=== PATIENT | female | born 1955 | race American Indian/Alaskan Native ===

== ENCOUNTER 2019-01-26 18:53 | Observation (INO) | payer SELFPAY ==
[2019-01-26] MEDS ORDERED: ASPIRIN PO ONE (19:01)
--- NOTE | 2019-01-26 19:02 | Emergency Department Report ---
Chief Complaint: Chest Pain Stated Complaint: CHEST PAIN Time Seen by Provider: 01/26/19 18:59 - HPI History of Present Illness: This is a 64 y.o. F. that presents to the ER with left sided chest pain since last night. - Exam Vital Signs: Vital Signs 01/26/19 18:57 Temperature 98.1 F Pulse Rate 69 Respiratory 16 Rate Blood Pressure 140/80 [Left] O2 Sat by Pulse 99 Oximetry MSE screening note: Focused history and physical exam performed. Due to findings the following was ordered: This initial assessment/diagnostic orders/clinical plan/treatment(s) is/are subject to change based on patient's health status, clinical progression and re- assessment by fellow clinical providers in the ED. Further treatment and workup at subsequent clinical providers discretion. Patient/guardians urged not to elope from the ED as their condition may be serious if not clinically assessed and managed. Initial orders include: Chest pain workup Main ED for further evaluation. ED Disposition for MSE Condition: Stable
[2019-01-26 19:47] LABS: BUN/Creatinine Ratio 19; Blood Urea Nitrogen 15 mg/dL (7-17); Calcium 9.3 mg/dL (8.4-10.2); Hemolysis Index 6
--- NOTE | 2019-01-26 19:47 | XRay Report ---
EXAM: XR CHEST 1V AP HISTORY: Chest Pain TECHNIQUE: AP CXR dated January 26, 2019 at 7:25 PM. COMPARISON: None available. FINDINGS: The heart size and mediastinum are within normal limits. The lung ceballos and costophrenic angles are clear. There is no acute parenchymal infiltrate, pleural effusion, or pneumothorax seen. The visua lized bony structures are within normal limits. IMPRESSION: 1. No evidence for acute cardiopulmonary disease seen. This document is electronically signed by Carlota Camarena MD., January 26 2019 07:44:43 PM ET
[2019-01-26 20:02] LABS: Hematocrit 38.5 % (30.3-42.9); Hemoglobin 12.8 gm/dl (10.1-14.3); Mean Corpuscular HGB Conc 33 % (30-34); Mean Corpuscular Volume 84 fl (79-97); Platelet Count 163 K/mm3 (140-440); Red Blood Count 4.58 M/mm3 (3.65-5.03); Red Cell Distribution Width 14.6 % (13.2-15.2)
--- NOTE | 2019-01-26 20:57 | Emergency Department Report ---
ED Chest Pain HPI - General Chief Complaint: Chest Pain Stated Complaint: CHEST PAIN Time Seen by Provider: 01/26/19 18:59 Source: patient, RN notes reviewed Mode of arrival: Ambulatory Limitations: No Limitations - History of Present Illness Initial Comments: This is a pleasant 64-year-old female. The patient is not known to this provider previously. She has a history of hypertension. She does not have a local primary care doctor. She presents to the emergency room today with a complaint of nontraumatic left sided chest pain, shortness of breath. Pain is intermittent. It started earlier on this afternoon. It does not radiate to the back, arms or neck. There is no shortness of breath. This is present over the past few days. It is exertional. It is associated with the chest discomfort. There are no DVT or pulmonary embolus risk factors. There is positive nausea. There is no vomiting. No recent aspirin use. No headache, neck pain, abdominal pain. No urinary symptoms. No other complaints. No family history of heart disease or DVT or pulmonary embolus that she is aware of. MD Complaint: chest pain -: Gradual Onset: during rest, during exertion Pain Location: left chest Pain Radiation: none Severity: mild, moderate Severity scale (0 -10): 8 Quality: tightness, aching Consistency: intermittent Improves With: other Worsens With: other Aspirin use within the Past 7 Days: (0) No - Related Data On Oral Contraceptives: No Home Medications Medication Instructions Recorded Confirmed Last Taken AtorvaSTATin [Lipitor] 20 mg PO QHS 01/27/19 01/27/19 Unknown Allergies Allergy/AdvReac Type Severity Reaction Status Date / Time No Known Allergies Allergy Verified 01/26/19 19:03 Heart Score - HEART Score History: Moderately suspicious EKG: Non-specific Age: 45-65 Risk factors: 1-2 risk factors Troponin: < normal limit HEART Score: 4 - Critical Actions Critical Actions: 4-6 pts:12-16.6% risk of adverse cardiac event. Should be admitted ED Review of Systems ROS: Stated complaint: CHEST PAIN Other details as noted in HPI Constitutional: malaise. denies: fever Eyes: denies: eye discharge ENT: denies: epistaxis Respiratory: shortness of breath Cardiovascular: chest pain Gastrointestinal: nausea. denies: vomiting Genitourinary: denies: dysuria Musculoskeletal: arthralgia Skin: denies: lesions Neurological: denies: headache Psychiatric: denies: anxiety ED Past Medical Hx - Past Medical History Previous Medical History?: Yes Additional medical history: high cholestrol - Surgical History Past Surgical History?: No - Social History Smoking Status: Never Smoker Substance Use Type: None - Medications Home Medications: Home Medications Medication Instructions Recorded Confirmed Last Taken Type AtorvaSTATin [Lipitor] 20 mg PO QHS 01/27/19 01/27/19 Unknown History ED Physical Exam - General Limitations: No Limitations General appearance: alert, in no apparent distress, obese - Head Head exam: Present: atraumatic, normocephalic - Eye Eye exam: Present: normal appearance, EOMI. Absent: nystagmus - ENT ENT exam: Present: normal exam, normal orophraynx, mucous membranes moist, normal external ear exam - Neck Neck exam: Present: normal inspection, full ROM. Absent: tenderness, meningi smus - Respiratory Respiratory exam: Present: normal lung sounds bilaterally, other (there is no breast tenderness, redness, pus or streaking. Chaperoned by nurse Marianne See). Absent: respiratory distress, wheezes, rales, rhonchi, stridor, chest wall tenderness - Cardiovascular Cardiovascular Exam: Present: regular rate, normal rhythm, normal heart sounds. Absent: bradycardia, tachycardia, irregular rhythm, systolic murmur, diastolic murmur, rubs, gallop - GI/Abdominal GI/Abdominal exam: Present: soft. Absent: distended, tenderness, guarding, rebound, rigid, pulsatile mass - Extremities Exam Extremities exam: Present: normal inspection, full ROM, other (2+ pulses noted in the bilateral upper, lower extremities. Compartments soft. No long bony tenderness. The pelvis is stable.). Absent: pedal edema, joint swelling, calf tenderness - Back Exam Back exam: Present: normal inspection, full ROM. Absent: tenderness, CVA tenderness (R), CVA tenderness (L), paraspinal tenderness, vertebral tenderness - Neurological Exam Neurological exam: Present: alert, oriented X3, other (Extraocular movements intact. Tongue midline. No facial droop. Facial sensation intact to light touch in the V1, V2, V3 distribution bilaterally. 5 and 5 strength in 4 extremities.. Sensation is intact to light touch in 4 extremities.). Absent: motor sensory deficit - Psychiatric Psychiatric exam: Present: normal affect, normal mood - Skin Skin exam: Present: warm, dry, intact, normal color. Absent: rash ED Course Vital Signs 01/26/19 01/26/19 01/27/19 18:57 20:32 00:37 Temperature 98.1 F Pulse Rate 69 61 Respiratory 16 18 16 Rate Blood Pressure 140/80 144/82 [Left] O2 Sat by Pulse 99 97 Oximetry 01/27/19 00:49 Temperature Pulse Rate 56 L Respiratory Rate Blood Pressure [Left] O2 Sat by Pulse Oximetry ASIF score - Asif Score Age > 65: (0) No Aspirin use within the Past 7 Days: (0) No 3 or more CAD Risk Factors: (0) No 2 or more Angina events in past 24 hrs: (1) Yes Known CAD with more than 50% Stenosis: (0) No Elevated Cardiac Markers: (0) No ST Deviation Greater than 0.5mm: (0) No ASIF Score: 1 ED Medical Decision Making - Lab Data Result diagrams: 01/27/19 13:07 01/27/19 13:07 Vital Signs 01/26/19 01/26/19 18:57 20:32 Temperature 98.1 F Pulse Rate 69 Respiratory 16 18 Rate Blood Pressure 140/80 [Left] O2 Sat by Pulse 99 Oximetry Labs 01/26/19 01/26/19 19:12 19:12 WBC 6.3 RBC 4.58 Hgb 12.8 Hct 38.5 MCV 84 MCH 28 MCHC 33 RDW 14.6 Plt Count 163 Lymph % (Auto) Product Communications Manager Seg Neutrophils % Product Communications Manager Sodium 139 Potassium 4.1 Chloride 103.4 Carbon Dioxide 22 Anion Gap 18 BUN 15 Creatinine 0.8 Estimated GFR > 60 BUN/Creatinine Ratio 19 Glucose 104 H Calcium 9.3 Troponin T < 0.010 - EKG Data -: EKG Interpreted by Ct EKG shows normal: sinus rhythm Rate: normal - EKG Data When compared to previous EKG there are: previous EKG unavailable 01/26/19 22:19 X-ray of the chest is negative for acute disease. EKG shows a sinus rhythm, 65 bpm, normal axis, when necessary interval prolonged, abnormal EKG, no prior for comparison, this EKG is not consistent with ST elevation myocardial infarction. - Radiology Data Radiology results: report reviewed, image reviewed Print Report Referring Physician: WENDY BARBOZA Patient Name: EVA PATINO Date of : 1955 Sex: Female Report Date: 2019-01-26 Report Status: Finalized Findings [facility] [address] [place] [address] XRay Report Signed Patient: EVA PATINO MR#: [id number] : 1955 Acct:[id number] Age/Sex: 64 / F ADM Date: 01/26/19 Loc: ED Attending Dr: Ordering Physician: KP DAVIS Date of Service: 01/26/19 Pro cedure(s): XR chest 1V ap Accession Number(s): [id number] cc: KP DAVIS Fluoro Time In Minutes: EXAM: XR CHEST 1V AP HISTORY: Chest Pain TECHNIQUE: AP CXR dated January 26, 2019 at 7:25 PM. COMPARISON: None available. FINDINGS: The heart size and mediastinum are within normal limits. The lung ceballos and costophrenic angles are clear. There is no acute parenchymal infiltrate, pleural effusion, or pneumothorax seen. The visualized bony structures are within normal limits. IMPRESSION: 1. No evidence for acute cardiopulmonary disease seen. This document is electronically signed by Hanny Christie MD., January 26 2019 07:44:43 PM ET Transcribed By: ASM Dictated By: HANNY CHRISTIE Elec tronically Authenticated By: HANNY CHRISTIE Signed Date/Time: 01/26/191946 - Medical Decision Making Differential diagnosis, including but not limited to: GERD, gastritis, hiatal hernia, pneumonia, acute coronary syndrome, pulmonary embolus Assessment and plan: Pleasant 64-year-old female, with new onset chest pain and shortness of breath. Moderate risk for major adverse cardiac event as per the heart score risk stratification tool. The patient has no DVT or pulmonary embolus risk factors, she is low risk by well's criteria, and has a negative d-dimer. Pulmonary embolus unlikely in my opinion. Aortic disease unlikely given equal pulses in upper and lower extremities, and unremarkable x-ray of the chest. We will treat the patient's symptoms. She is basically pain-free at this time. She is amenable to hospitalization for expedited cardiac risk stratification. The Hospital physician, Dr. Sprague has agreed to admit the patient to the medical service for the aforementioned reasons. Critical care attestation.: If time is entered above; I have spent that time in minutes in the direct care of this critically ill patient, excluding procedure time. ED Disposition Clinical Impression: Chest pain, Dyspnea Disposition: OP ADMIT IP TO THIS HOSP Is pt being admited?: Yes Does the pt Need Aspirin: Yes Condition: Stable
[2019-01-26] MEDS ORDERED: NACL 0.9% 500 ML 500 ML IV ONE (21:16)
[2019-01-26] MEDS ORDERED: PEPCID IV ONE (21:16)
[2019-01-26] MEDS ORDERED: TORADOL IV ONE (21:16)
[2019-01-26] MEDS ORDERED: NITROSTAT SL PRN (21:16)
[2019-01-26 21:31] LABS: Basophils % (Manual) 0 % (0.0-1.8); RBC Morphology Normal; Total Cells Counted 100
[2019-01-26] MEDS ORDERED: ZOFRAN IV PRN (21:53)
[2019-01-26] MEDS ORDERED: SODIUM CHLORIDE FLUSH SYRINGE 10 ML IV PRN (21:53)
[2019-01-26] MEDS ORDERED: TYLENOL PO PRN (21:53)
[2019-01-26] MEDS ORDERED: PERCOCET 5/325 PO PRN (21:53)
[2019-01-26] MEDS ORDERED: APRESOLINE IV PRN (21:57)
--- NOTE | 2019-01-26 22:04 | History and Physical Report ---
History of Present Illness Date of examination: 01/26/19 History of present illness: 64-year-old lady with a history of hyperlipidemia comes emergency room with complaints of chest pain that started 1 week ago. Was in the left substernal area which he describes as a sharp pain, intermittent every 5 minutes, intensity 5/10, no radiation, cannot identify assessment given factors. Admits to nausea, shortness of breath, palpitation, no diaphoresis. Review of systems Constitutional: no weight loss, chills, fever Ears, eyes, nose, mouth and throat: no nasal congestion, no nasal discharge, no sinus pressure, no vision change, no red eye. Neck: No neck pain or rigidity. Cardiovascular: no palpitations, chest pain Respiratory: no cough, shortness of breath Gastrointestinal: no hematochezia, abdominal pain Genitourinary : no frequency , no hematuria Musculoskeletal: no joint swelling or muscle ache Integumentary: no rash, no pruritis Neurological: no parathesias, no focal weakness Endocrine: no cold or heat intolerance, no polyuria or polydipsia Hematologic/Lymphatic: no easy bruising, no easy bleeding, no gland swelling Allergic/Immunologic: no urticaria, no angioedema. PAST MEDICAL HISTORY:hyperlipidemia PAST SURGICAL HISTORY: None SOCIAL HISTORY: Denies alcohol, drugs, tobacco FAMILY HISTORY: Hypertension Medications and Allergies Allergies Allergy/AdvReac Type Severity Reaction Status Date / Time No Known Allergies Allergy Verified 01/26/19 19:03 Home Medications Medication Instructions Recorded Confirmed Last Taken Type AtorvaSTATin [Lipitor] 20 mg PO QHS 01/27/19 01/27/19 Unknown History Active Meds: Active Medications Acetaminophen (Tylenol) 650 mg PO Q4H PRN PRN Reason: Pain MILD(1-3)/Fever >100.5/MADDEN Enoxaparin Sodium (Lovenox) 30 mg SUB-Q QDAY WES Hydralazine HCl (Apresoline) 5 mg IV Q6H PRN PRN Reason: Hypertension Nitroglycerin (Nitrostat) 0.4 mg SL .Q5MIN PRN PRN Reason: Chest Pain Ondansetron HCl (Zofran) 4 mg IV Q8H PRN PRN Reason: Nausea And Vomiting Oxycodone/Acetaminophen (Percocet 5/325) 1 tab PO Q4H PRN PRN Reason: Pain, Moderate (4-6) Sodium Chloride (Sodium Chloride Flush Syringe 10 Ml) 10 ml IV BID WES Sodium Chloride (Sodium Chloride Flush Syringe 10 Ml) 10 ml IV PRN PRN PRN Reason: LINE FLUSH Exam - Physical Exam Narrative exam: General Apperance: The patient lying in bed, breathing comfortable HEENT: Normocephalic, atraumatic. Pupils equally round and reactive to light, EOMI, no sclericterus or JVD or thyromegaly or nodule. , no carotid bruit, mucous membranes moist, no exudate or erythema Heart: S1-S2, regular is rhythm Lungs: Clear to auscultation bilaterally, breathing comfortable Abdomen: Positive bowel sounds, soft, nontender, nondistended, no organomegaly Extremities: No edema cyanosis clubbing Skin: no rash, nodule, warm and dry Neuro: cranial nerves 2-12 intact, speech is fluent, motor/sensory intact - Constitutional Vitals: Temp Pulse Resp BP Pulse Ox 98.1 F 69 18 140/80 99 01/26/19 18:57 01/26/19 18:57 01/26/19 20:32 01/26/19 18:57 01/26/19 18:57 Results - Labs CBC & Chem 7: 01/26/19 19:12 01/26/19 19:12 Labs: Abnormal lab results 01/26/19 01/26/19 01/26/19 Range/Units 19:12 19:12 21:21 Seg Neuts % (Manual) 25.0 L (40.0-70.0) % Lymphocytes % (Manual) 68.0 H (13.4-35.0) % Seg Neutrophils # Man 1.6 L (1.8-7.7) K/mm3 Glucose 104 H (65-100) mg/dL Total Creatine Kinase 442 H (30-135) units/L - Imaging and Cardiology EKG: image reviewed Chest x-ray: report reviewed Assessment and Plan Assessment Hypertensive urgency, new onset Chest pain Hyperlipidemia Plan Admit to medicine Check cardiac enzymes, stress test IV hydralazine as needed for blood pressure control Percocet, DVT prophylaxis Addendum UTI, start rocephin
[2019-01-26] MEDS: SODIUM CHLORIDE FLUSH SYRINGE 10 ML IV SCH (22:15)
[2019-01-26] MEDS ORDERED: BABY ASPIRIN PO ONE (22:21)
[2019-01-26 22:22] LABS: Bacteria,Urine 1+ /HPF (Negative); Bilirubin,Urine NEG (Negative); Blood,Urine SM (Negative); Color,Urine Straw (Yellow); Protein,Urine <15 mg/dL mg/dL (Negative); Urobilinogen,Urine < 2.0 mg/dL (<2.0)
[2019-01-27] MEDS: ROCEPHIN/NS 1 GM/50 ML 1 GM/50 ML BAG IV SCH (05:40)
[2019-01-27] MEDS ORDERED: LOVENOX SUB-Q SCH (10:00)
[2019-01-27] MEDS ORDERED: LEXISCAN IV ONE ×2 (10:00→10:45)
[2019-01-27] MEDS: SODIUM CHLORIDE FLUSH SYRINGE 10 ML IV SCH ×2 (11:38→22:56)
--- NOTE | 2019-01-27 12:26 | Consultation ---
History of Present Illness Consult date: 01/27/19 Requesting physician: SANJAY LAVARADO Consult reason: chest pain, other (abnormal stress test) History of present illness: She presented with a 1-week h/o recurrent, sharp precordial chest pain. No other associated symptoms. She came to the ER because chest pain persisted on the day of presentation. After ruling out for AMI, she underwent Lexiscan stresss MPI which revealed a large, partially rversible apical defect and a medium size, partially reversible inferior defect. Past History Past Medical History: hyperlipidemia Past Surgical History: No surgical history Social history: denies: smoking, alcohol abuse Family history: CAD (Brother of AMI) Medications and Allergies Allergies Allergy/AdvReac Type Severity Reaction Status Date / Time No Known Allergies Allergy Verified 01/26/19 19:03 Home Medications Medication Instructions Recorded Confirmed Last Taken Type AtorvaSTATin [Lipitor] 20 mg PO QHS 01/27/19 01/27/19 Unknown History Active Meds: Active Medications Acetaminophen (Tylenol) 650 mg PO Q4H PRN PRN Reason: Pain MILD(1-3)/Fever >100.5/MADDEN Enoxaparin Sodium (Lovenox) 40 mg SUB-Q QDAY [facility] Last Admin: 01/27/19 11:38 Dose: 40 mg Documented by: Hydralazine HCl (Apresoline) 5 mg IV Q6H PRN PRN Reason: Hypertension Ceftriaxone Sodium (Rocephin/Ns 1 Gm/50 Ml) 1 gm in 50 mls @ 100 mls/hr IV Q24H WES; Protocol Last Admin: 01/27/19 05:40 Dose: 100 mls/hr Documented by: Nitroglycerin (Nitrostat) 0.4 mg SL .Q5MIN PRN PRN Reason: Chest Pain Ondansetron HCl (Zofran) 4 mg IV Q8H PRN PRN Reason: Nausea And Vomiting Oxycodone/Acetaminophen (Percocet 5/325) 1 tab PO Q4H PRN PRN Reason: Pain, Moderate (4-6) Sodium Chloride (Sodium Chloride Flush Syringe 10 Ml) 10 ml IV BID WES Last Admin: 01/27/19 11:38 Dose: 10 ml Documented by: Sodium Chloride (Sodium Chloride Flush Syringe 10 Ml) 10 ml IV PRN PRN PRN Reason: LINE FLUSH Review of Systems Constitutional: no fever, no chills Ears, nose, mouth and throat: no ear pain, no ear discharge, no sore throat Cardiovascular: chest pain, no palpitations, no syncope, no lightheadedness, no shortness of breath Respiratory: no cough, no hemoptysis, no shortness of breath Gastrointestinal: no abdominal pain, no nausea, no vomiting, no diarrhea, no constipation Genitourinary Female: no dysuria, no urinary frequency Rectal: no pain, no bleeding Musculoskeletal: no neck stiffness, no neck pain, no myalgias Integumentary: no rash, no pruritis Neurological: no weakness, no parathesias, no headaches Endocrine: no cold intolerance, no heat intolerance Hematologic/Lymphatic: no easy bruising, no easy bleeding Allergic/Immunologic: no urticaria, no wheezing Physical Examination Vital Signs Last Vital Signs Temp 98.3 F 01/27/19 04:22 Pulse 58 L 01/27/19 04:22 Resp 18 01/27/19 04:22 BP 139/83 01/27/19 10:40 Pulse Ox 99 01/27/19 04:22 General appearance: no acute distress HEENT: Positive: EOMI, Normocephaly Neck: Positive: neck supple, trachea midline, Carotid Upstroke (full) Cardiac: Positive: Reg Rate and Rhythm, S1/S2 Lungs: Positive: clear to auscultation Neuro: Positive: Grossly Intact Abdomen: Positive: Soft, Active Bowel Sounds. Negative: Tender Skin: Positive: Clear. Negative: Rash Musculoskeletal: Normal Range of Motion Extremities: Present: normal. Absent: edema Results 01/26/19 19:12 01/26/19 19:12 CBC 01/26/19 Range/Units 19:12 WBC 6.3 (4.5-11.0) K/mm3 RBC 4.58 (3.65-5.03) M/mm3 Hgb 12.8 (10.1-14.3) gm/dl Hct 38.5 (30.3-42.9) % Plt Count 163 (140-440) K/mm3 Comprehensive Metabolic Panel 01/26/19 Range/Units 19:12 Sodium 139 (137-145) mmol/L Potassium 4.1 (3.6-5.0) mmol/L Chloride 103.4 (98-107) mmol/L Carbon Dioxide 22 (22-30) mmol/L BUN 15 (7-17) mg/dL Creatinine 0.8 (0.7-1.2) mg/dL Glucose 104 H (65-100) mg/dL Calcium 9.3 (8.4-10.2) mg/dL - Imaging and Cardiology EKG: image reviewed EKG interpretations - EKG Sinus rhythms and dysrhythmias: sinus rhythm Assessment and Plan Initiate anti-ischemic regimen. Schedule coronary angiography in am. - Patient Problems (1) Chest pain Current Visit: Yes Status: Acute (2) Abnormal nuclear stress test Current Visit: Yes Status: Acute (3) Elevated BP without diagnosis of hypertension Current Visit: Yes Status: Acute
[2019-01-27] MEDS ORDERED: NACL 0.9% 500 ML 500 ML IV SCH (13:00)
--- NOTE | 2019-01-27 13:12 | Progress Note ---
Assessment and Plan Assessment and plan: Patient is a 64 yo woman with a history of dyslipidemia who presented to [facility] ED with left sided chest pains x 1 week. She does have indigestion. Cardiac enzyme/troponon T have been negative x 2. She was found to have UTI. She was sent for exercise stress test but she was dizziness so Lexiscan was ordered and it was positive for large, partially reversible apical defect and a medium size, partially reversible inferior defect. Patient had a mammogram recently but says the pain started prior to the mammogram. Chest pains with positive stress test: Cardiology consulted, input noted, [facility] tomorrow GERD: treat with PPI Dyslipidemia: increase Lipitor Hypertension urgency: treat with lopressor, get ECHO UTI: on iv rocephin, urine culture ordered but not done, spoke with nurse Prema History Interval history: Patient was seen and examined. Follow-up on current diagnosis CP. No overnight events reported to me. Patient denies any shortness breath, nausea/vomiting or severe headaches. Imaging, nursing note, chart, labs and old chart reviewed. Discussed with patient. Hospitalist Physical - Physical exam Narrative exam: Gen: WDWN, NAD, Awake, Alert, Orientated HEENT: NCAT, EOMI, PERRL, OP Clear Neck: supple, no adenopathy, no thyromegaly, no JVD CVS/Heart: RRR, normal S1S2, pulses present bilaterally Chest/Lungs: CTA B, Symmetrical chest expansion, good air entry bilaterally GI/Abdomen: soft, NTND, good bowel sounds, no guarding or rebound /Bladder: no suprapubic tenderness, no CVA or paraspinal tenderness Extermity/Skin: no c/c/e, no obvious rash MSK: FROM x 4 Neuro: CN 2-12 grossly intact, no new focal deficits Psych: calm - Constitutional Vitals: Temp Pulse Resp BP Pulse Ox 98.0 F 70 18 120/61 100 01/27/19 12:47 01/27/19 12:47 01/27/19 12:47 01/27/19 12:47 01/27/19 12:47 General appearance: Present: no acute distress Results - Labs CBC & Chem 7: 01/26/19 19:12 01/26/19 19:12 Labs: Laboratory Last Values WBC 6.3 K/mm3 (4.5-11.0) 01/26/19 19:12 RBC 4.58 M/mm3 (3.65-5.03) 01/26/19 19:12 Hgb 12.8 gm/dl (10.1-14.3) 01/26/19 19:12 Hct 38.5 % (30.3-42.9) 01/26/19 19:12 MCV 84 fl (79-97) 01/26/19 19:12 MCH 28 pg (28-32) 01/26/19 19:12 MCHC 33 % (30-34) 01/26/19 19:12 RDW 14.6 % (13.2-15.2) 01/26/19 19:12 Plt Count 163 K/mm3 (140-440) 01/26/19 19:12 Lymph % (Auto) Price Accuracy Supervisor 01/26/19 19:12 Add Manual Diff Complete 01/26/19 19:12 Total Counted 100 01/26/19 19:12 Seg Neutrophils % Price Accuracy Supervisor 01/26/19 19:12 Seg Neuts % (Manual) 25.0 % (40.0-70.0) L 01/26/19 19:12 0 % 01/26/19 19:12 68.0 % (13.4-35.0) H 01/26/19 19:12 Reactive Lymphs % (Man) 0 % 01/26/19 19:12 3.0 % (0.0-7.3) 01/26/19 19:12 4.0 % (0.0-4.3) 01/26/19 19:12 0 % (0.0-1.8) 01/26/19 19:12 0 % 01/26/19 19:12 0 % 01/26/19 19:12 0 % 01/26/19 19:12 0 % 01/26/19 19:12 Nucleated RBC % Not Reportable 01/26/19 19:12 Seg Neutrophils # Man 1.6 K/mm3 (1.8-7.7) L 01/26/19 19:12 Band Neutrophils # 0.0 K/mm3 01/26/19 19:12 4.3 K/mm3 (1.2-5.4) 01/26/19 19:12 Abs React Lymphs (Man) 0.0 K/mm3 01/26/19 19:12 0.2 K/mm3 (0.0-0.8) 01/26/19 19:12 0.3 K/mm3 (0.0-0.4) 01/26/19 19:12 0.0 K/mm3 (0.0-0.1) 01/26/19 19:12 0.0 K/mm3 01/26/19 19:12 0.0 K/mm3 01/26/19 19:12 0.0 K/mm3 01/26/19 19:12 Blast Cells # 0.0 K/mm3 01/26/19 19:12 WBC Morphology Not Reportable 01/26/19 19:12 Hypersegmented Neuts Not Reportable 01/26/19 19:12 Hyposegmented Neuts Not Reportable 01/26/19 19:12 Hypogranular Neuts Not Reportable 01/26/19 19:12 Not Reportable 01/26/19 19:12 Not Reportable 01/26/19 19:12 Not Reportable 01/26/19 19:12 Not Reportable 01/26/19 19:12 Not Reportable 01/26/19 19:12 Not Reportable 01/26/19 19:12 Not Reportable 01/26/19 19:12 Not Reportable 01/26/19 19:12 Plt Clumps, EDTA Not Reportable 01/26/19 19:12 Not Reportable 01/26/19 19:12 Not Reportable 01/26/19 19:12 Not Reportable 01/26/19 19:12 Plt Morphology Comment Not Reportable 01/26/19 19:12 RBC Morphology Normal 01/26/19 19:12 Dimorphic RBCs Not Reportable 01/26/19 19:12 Not Reportable 01/26/19 19:12 Not Reportable 01/26/19 19:12 Not Reportable 01/26/19 19:12 Not Reportable 01/26/19 19:12 Not Reportable 01/26/19 19:12 Not Reportable 01/26/19 19:12 Not Reportable 01/26/19 19:12 Not Reportable 01/26/19 19:12 Not Reportable 01/26/19 19:12 Not Reportable 01/26/19 19:12 Not Reportable 01/26/19 19:12 Not Reportable 01/26/19 19:12 Not Reportable 01/26/19 19:12 Not Reportable 01/26/19 19:12 Not Reportable 01/26/19 19:12 Not Reportable 01/26/19 19:12 Not Reportable 01/26/19 19:12 Not Reportable 01/26/19 19:12 Not Reportable 01/26/19 19:12 Acanthocytes (Spur) Not Reportable 01/26/19 19:12 Rouleaux Not Reportable 01/26/19 19:12 Not Reportable 01/26/19 19:12 Not Reportable 01/26/19 19:12 Not Reportable 01/26/19 19:12 Not Reportable 01/26/19 19:12 Hem Pathologist Commnt No 01/26/19 19:12 185.90 ng/mlDDU (0-234) 01/26/19 21:21 Sodium 139 mmol/L (137-145) 01/26/19 19:12 Potassium 4.1 mmol/L (3.6-5.0) 01/26/19 19:12 Chloride 103.4 mmol/L (98-107) 01/26/19 19:12 Carbon Dioxide 22 mmol/L (22-30) 01/26/19 19:12 18 mmol/L 01/26/19 19:12 BUN 15 mg/dL (7-17) 01/26/19 19:12 0.8 mg/dL (0.7-1.2) 01/26/19 19:12 Estimated GFR > 60 ml/min 01/26/19 19:12 19 % 01/26/19 19:12 Glucose 104 mg/dL (65-100) H 01/26/19 19:12 Calcium 9.3 mg/dL (8.4-10.2) 01/26/19 19:12 Magnesium 2.00 mg/dL (1.7-2.3) 01/26/19 21:21 442 units/L (30-135) H 01/26/19 21:21 < 0.010 ng/mL (0.00-0.029) 01/26/19 21:21 Straw (Yellow) 01/26/19 21:55 Slightly-cloudy (Clear) 01/26/19 21:55 5.0 (5.0-7.0) 01/26/19 21:55 Ur Specific [place] 1.008 (1.003-1.030) 01/26/19 21:55 <15 mg/dl mg/dL (Negative) 01/26/19 21:55 Neg mg/dL (Negative) 01/26/19 21:55 Neg mg/dL (Negative) 01/26/19 21:55 Sm (Negative) 01/26/19 21:55 Neg (Negative) 01/26/19 21:55 Neg (Negative) 01/26/19 21:55 < 2.0 mg/dL (<2.0) 01/26/19 21:55 Ur Leukocyte Esterase Lg (Negative) 01/26/19 21:55 28.0 /HPF (0.0-6.0) H 01/26/19 21:55 1.0 /HPF (0.0-6.0) 01/26/19 21:55 U Epithel Cells (Auto) < 1.0 /HPF (0-13.0) 01/26/19 21:55 1+ /HPF (Negative) 01/26/19 21:55 Active Medications - Current Medications Current Medications: Generic Name Dose Route Start Last Admin Trade Name Freq PRN Reason Stop Dose Admin Acetaminophen 650 mg 01/26/19 21:53 Tylenol PO Q4H PRN Pain MILD(1-3)/Fever >100.5/MADDEN Aspirin 325 mg 01/28/19 10:00 Aspirin PO QDAY WES Enoxaparin Sodium 40 mg 01/27/19 10:00 01/27/19 11:38 Lovenox SUB-Q 40 mg QDAY WES Administration Hydralazine HCl 5 mg 01/26/19 21:57 Apresoline IV Q6H PRN Hypertension Ceftriaxone Sodium 1 gm in 50 mls @ 100 mls/hr 01/27/19 06:00 01/27/19 05:40 Rocephin/Ns 1 Gm/50 Ml IV 100 mls/hr Q24H WES Administration Protocol Sodium Chloride 500 mls @ 50 mls/hr 01/27/19 13:00 Nacl 0.9% 500 Ml IV 01/27/19 22:59 DIRECT WES Nitroglycerin 0.4 mg 01/26/19 21:16 Nitrostat SL .Q5MIN PRN Chest Pain Ondansetron HCl 4 mg 01/26/19 21:53 Zofran IV Q8H PRN Nausea And Vomiting Oxycodone/Acetaminophen 1 tab 01/26/19 21:53 Percocet 5/325 PO Q4H PRN Pain, Moderate (4-6) Sodium Chloride 10 ml 01/26/19 22:00 01/27/19 11:38 Sodium Chloride Flush Syringe 10 Ml IV 10 ml BID WES Administration Sodium Chloride 10 ml 01/26/19 21:53 Sodium Chloride Flush Syringe 10 Ml IV PRN PRN LINE FLUSH
--- NOTE | 2019-01-27 13:41 | Treadmill Report ---
LEXISCAN STRESS TEST REPORT REASON FOR STUDY: Chest pain. STRESS TEST PROTOCOL: The patient received 0.4 mg of Lexiscan intravenously over 10 seconds. Tc-99m Tetrofosmin was subsequently injected. Baseline ECG, sinus bradycardia. Lexiscan ECG, no ischemic changes. No chest pain. No arrhythmias. IMPRESSION: Electrocardiographically negative stress test. Nuclear imaging report to follow. JOB# [id number] [place]/NTS
[2019-01-27] MEDS: LOPRESSOR PO SCH ×2 (14:00→22:55)
[2019-01-27] MEDS ORDERED: PROTONIX PO SCH (14:00)
[2019-01-27 14:03] LABS: Basophils % (Auto) 0.5 % (0.0-1.8); Eosinophils % (Auto) 0.5 % (0.0-4.3); Hematocrit 40.6 % (30.3-42.9); Hemoglobin 13.1 gm/dl (10.1-14.3); Lymphocytes # (Auto) 2.4 K/mm3 (1.2-5.4); Lymphocytes % (Auto) 41.3 % (13.4-35.0); Mean Corpuscular HGB Conc 32 % (30-34); Mean Corpuscular Volume 85 fl (79-97); Monocytes # (Auto) 0.5 K/mm3 (0.0-0.8); Monocytes % (Auto) 7.7 % (0.0-7.3); Platelet Count 171 K/mm3 (140-440); Red Blood Count 4.78 M/mm3 (3.65-5.03); Red Cell Distribution Width 14.3 % (13.2-15.2)
[2019-01-27 14:32] LABS: Creatine Kinase MB 5.1 ng/mL (0.0-4.0)
[2019-01-27 14:33] LABS: BUN/Creatinine Ratio 16; Blood Urea Nitrogen 13 mg/dL (7-17); Calcium 9.3 mg/dL (8.4-10.2); Hemolysis Index 4
--- NOTE | 2019-01-27 15:09 | Treadmill Report ---
THALLIUM REPORT REASON FOR STUDY: Chest pain. IMAGING PROTOCOL: The patient received 10 mCi of technetium-99 Tetrofosmin for rest imaging, and 28 mCi of technetium-99 Tetrofosmin for stress imaging. Imaging for all procedures etc. IMAGING PROTOCOL: The patient received 4 mCi of Thallium 201 for rest imaging and 26 mCi of technetium-99 Tetrofosmin for stress imaging. Imaging for all procedures was completed 30-90 minutes following the initial injection of Technetium 99m Tetrofosmin. SPECT imaging in the 180 degree arc was performed in the right anterior oblique projection. Computerized reconstruction of the images was performed for analysis. NUCLEAR IMAGING RESULTS: Normal left ventricular cavity size with no change from stress to rest. Distribution of radionuclide within the left ventricle revealed a large area of photo-induction involving the apex. The degree of photo-induction is moderate. Rest imaging showed partial improvement in this defect. In addition, there is a medium size area of photo-induction involving the inferior wall. The degree of photo-induction is moderate. Rest imaging showed partial improvement in this defect. Gated SPECT imaging revealed normal global LV systolic function with no significant wall motion abnormalities. The calculated left ventricular ejection fraction is 70%. IMPRESSION: Large, partially reversible apical defect. Medium size, partially reversible inferior defect. Normal global LV systolic function with no significant wall motion abnormalities. Ejection fraction 70%. These findings suggest a small area of prior infarction with mild to moderate residual ischemia in the left anterior descending coronary artery territory. In addition, there is suggestion of a small area of prior infarction with moderate residual ischemia in the right coronary artery territory. [facility]# [id number] [facility]/NTS
[2019-01-28] MEDS: ROCEPHIN/NS 1 GM/50 ML 1 GM/50 ML BAG IV SCH (05:34)
[2019-01-28 06:08] LABS: Hematocrit 40.6 % (30.3-42.9); Mean Corpuscular HGB Conc 32 % (30-34); Mean Corpuscular Volume 85 fl (79-97); Platelet Count 177 K/mm3 (140-440); Red Blood Count 4.78 M/mm3 (3.65-5.03); Red Cell Distribution Width 14.3 % (13.2-15.2)
[2019-01-28 06:14] LABS: INR 0.95 (0.87-1.13)
[2019-01-28 06:19] LABS: BUN/Creatinine Ratio 19; Blood Urea Nitrogen 15 mg/dL (7-17); Calcium 8.9 mg/dL (8.4-10.2); Hemolysis Index 7; LDL Cholesterol,Direct 143 mg/dL (50-130)
[2019-01-28] MEDS ORDERED: ASPIRIN ONE (07:24)
[2019-01-28] MEDS ORDERED: VERSED ONE (08:15)
[2019-01-28] MEDS ORDERED: SUBLIMAZE ONE (08:15)
[2019-01-28] MEDS ORDERED: HEPARIN/NS 5000 UNIT/500ML(CATH LAB) 1,000 ML IR ONE (08:15)
[2019-01-28] MEDS ORDERED: CALAN ONE (08:15)
[2019-01-28] MEDS ORDERED: HEPARIN 10,000 UNITS/10 ML ONE (08:15)
[2019-01-28] MEDS ORDERED: NITROGLYCERIN SYRINGE 3 ML ONE (08:16)
[2019-01-28] MEDS ORDERED: XYLOCAINE 2% INFILTRATI ONE (08:16)
[2019-01-28 08:19] LABS: Chol/HDL Ratio 4.78 %; HDL Cholesterol 41 mg/dL (40-59)
[2019-01-28 08:20] LABS: Basophils % (Manual) 0 % (0.0-1.8); Eosinophils % (Manual) 0 % (0.0-4.3); Platelet Estimate Consistent w Auto; RBC Morphology Normal; Total Cells Counted 100
--- NOTE | 2019-01-28 09:08 | Progress Note ---
Assessment and Plan [facility] via RRA this am: 1. No sig CAD 2. Nl lv fxn 3. No as standard radial care. Consider adding DOC Stable cv status f/u w/ us in office - Patient Problems (1) Abnormal nuclear stress test Current Visit: Yes Status: Acute (2) Chest pain Current Visit: Yes Status: Acute (3) Dyspnea Current Visit: Yes Status: Acute (4) Elevated BP without diagnosis of hypertension Current Visit: Yes Status: Acute Subjective Date of service: 01/28/19 Interval history: no complaints Objective Vital Signs Temp Pulse Pulse Resp BP BP Pulse Ox 01/28/19 07:25 98.6 F 59 L 16 153/77 98 01/28/19 03:57 97.5 F L 62 18 119/64 96 01/28/19 01:17 54 L 01/28/19 00:08 97.9 F 57 L 18 123/51 97 01/27/19 22:55 61 144/71 01/27/19 20:12 97 01/27/19 20:10 61 01/27/19 20:07 98.4 F 60 18 144/71 99 01/27/19 16:59 98.0 F 63 18 124/64 95 01/27/19 14:00 70 120/61 01/27/19 13:00 66 60 01/27/19 12:47 98.0 F 70 18 120/61 100 01/27/19 10:40 139/83 01/27/19 10:38 137/80 01/27/19 10:36 141/77 01/27/19 10:34 133/75 01/27/19 10:32 149/81 01/27/19 10:21 131/74 01/27/19 09:47 154/78 - Physical Examination HEENT: Positive: EOMI, Normocephaly Neck: Positive: neck supple, trachea midline, Carotid Upstroke (full) Neuro: Positive: Grossly Intact Abdomen: Positive: Soft, Active Bowel Sounds. Negative: Tender Skin: Positive: Clear. Negative: Rash Musculoskeletal: Normal Range of Motion Extremities: Present: normal. Absent: edema - Labs and Meds Cardiac Enzymes 01/27/19 Range/Units 13:07 CK-MB (CK-2) 5.1 H (0.0-4.0) ng/mL Coagulation 06/06/19 Range/Units 05:14 PT 13.3 (12.2-14.9) Sec. INR 0.95 (0.87-1.13) Lipids 01/28/19 Range/Units 05:14 Triglycerides 113 (2-149) mg/dL Cholesterol 196 (50-199) mg/dL HDL Cholesterol 41 (40-59) mg/dL Cholesterol/HDL Ratio 4.78 % CBC 01/27/19 01/28/19 Range/Units 13:07 05:14 WBC 5.9 6.1 (4.5-11.0) K/mm3 RBC 4.78 4.78 (3.65-5.03) M/mm3 Hgb 13.1 13.0 (10.1-14.3) gm/dl Hct 40.6 40.6 (30.3-42.9) % Plt Count 171 177 (140-440) K/mm3 Lymph # 2.4 (1.2-5.4) K/mm3 [place] # 0.5 (0.0-0.8) K/mm3 Eos # 0.0 (0.0-0.4) K/mm3 Baso # 0.0 (0.0-0.1) K/mm3 Comprehensive Metabolic Panel 01/27/19 01/28/19 Range/Units 13:07 05:14 Sodium 139 141 (137-145) mmol/L Potassium 3.8 4.1 (3.6-5.0) mmol/L Chloride 101.4 105.1 (98-107) mmol/L Carbon Dioxide 27 24 (22-30) mmol/L BUN 13 15 (7-17) mg/dL Creatinine 0.8 0.8 (0.7-1.2) mg/dL Glucose 124 H 114 H (65-100) mg/dL Calcium 9.3 8.9 (8.4-10.2) mg/dL - Imaging and Cardiology EKG: image reviewed - EKG Sinus rhythms and dysrhythmias: sinus rhythm
--- NOTE | 2019-01-28 09:38 | Cardiac Catherization Report ---
PROCEDURE PERFORMED: Cardiac catheterization. INDICATION FOR PROCEDURE: The patient is a pleasant 64-year-old female who presents with chest pain and found to have an abnormal stress test, multiple risk factors, referred for heart catheterization. Risks, benefits, and potential alternatives were explained at length prior to obtaining informed consent. PROCEDURE IN DETAIL: The patient was brought to catheterization lab in a postabsorptive state, prepped and draped in sterile fashion. Jaydon test in right hand was normal. A 2 mL of 2% lidocaine used to anesthetize the right wrist. A standard 6-Serbian hydrophilic sheath used to cannulate the right radial artery via modified Seldinger technique. All exchanges performed to exchange a J-tip guidewire. JL3.5 catheter used to engage the left main. No dampening or ventricularization. Cineangiography performed in multiple projections. JR4 catheter was used to cross the aortic valve under fluoroscopic guidance. Left ventriculography performed in 30 DAS and 30 [place]OROCCAN projections via hand injections, catheter flushed. Manual pullback performed with continuous pressure monitoring. Catheter used to engage the right coronary. No dampening or ventricularization. Cineangiography performed in all projections. Next, given catheter removed from the body over wire, given recurrent chest pain and hypertension, root aortography was performed in the M[place] projection with a 6-Serbian pigtail catheter and power injector. Next, catheter removed from the body of wire, sheath removed. Manual pressure used to achieve hemostasis. I directly supervised the administration of moderate sedation with fentanyl and Versed from 8:40 a.m. to 9:10 a.m. There were no immediate complications. HEMODYNAMIC DATA: The patient remained in normal sinus rhythm throughout the procedure, heart rate from 55-70, no dysrhythmias. Aortic pressure is 170/80, LV pressure is 170. LVP of 15 mmHg. Left ventriculography reveals normal systolic performance with estimated ejection fraction of 55% to 60%. No evidence of aortic stenosis. CORONARY ANATOMY: This is a right dominant system. Right coronary is a large vessel, courses AV groove, distally bifurcates into posterior descending and posterolateral branches. No discrete stenosis noted. Left main is a moderate-sized vessel, no significant disease, bifurcates to left anterior descending and left circumflex. Left circumflex is a moderate-sized vessel, courses AV groove. No significant disease. LAD is a moderate-sized vessel, courses anterior intergroove, wraps around the apex. No significant disease in the LAD or diagonal system. Left ventriculography reveals normal systolic performance with estimated ejection fraction of 55% to 60%. No evidence of aortic stenosis. Root aortography reveals normal contour. No evidence of dissection, penetrating aortic ulcer, or aortic insufficiency, normal grade vessel anatomy, normal caliber. CONCLUSIONS: 1. No angiographic evidence of significant epicardial coronary disease in this right dominant system. 2. Normal left ventricular systolic performance with estimated ejection fraction of 55% to 60%. 3. No evidence of aortic stenosis. 4. Normal LVEDP. 5. Root aortography without evidence of dissection, penetrating aortic ulcer, or aortic insufficiency. The patient is clinically stable. Standard radial care. Chest pain free. Transferred back to the room. Follow up with Dr. Fowler. Stable cardiac status. JOB# [id number] [facility]/NTS
[2019-01-28] MEDS ORDERED: ASPIRIN PO SCH (10:00)
[2019-01-28 12:36] VITALS: BP 136/67
--- NOTE | 2019-01-28 14:11 | Discharge Summary ---
Providers - Providers Date of Admission: 01/26/19 21:53 Date of discharge: 01/28/19 Attending physician: BEN ALARCON 01/27/19 12:05 Consult to Physician [CONS] Routine Comment: Consulting Provider: OUSMANE RUTLEDGE Physician Instructions: Reason For Exam: chest pain 01/28/19 09:13 Consult to Cardiac Rehabilitation [CONS] Routine Reason For Exam: Cardiac Rehab Evaluation [facility] Hospital[facility] Condition: Stable Hospital course: Patient is a 64 yo woman with a history of dyslipidemia who presented to [facility] ED with left sided chest pains x 1 week. She does have indigestion. Cardiac enzyme/troponon T have been negative x 2. She was found to have UTI. She was sent for exercise stress test but she was dizziness so Lexiscan was ordered and it was positive for large, partially reversible apical defect and a medium size, partially reversible inferior defect. Patient had a mammogram recently but says the pain started prior to the mammogram. [facility] via RRA this am: 1. No sig CAD 2. Nl lv fxn 3. No as Chest pains with positive stress test, suspected CP due to GERD, poa Abnormal nuclear stress test, negative Cardiac catherization on 12/28/18 GERD: treat with PPI Dyslipidemia: increase Lipitor Hypertension urgency, new diagnosis most likely: treat with lopressor, get ECHO UTI, uncomplicated with neg urine ctx Disposition: DC-01 TO HOME OR SELFCARE Time spent for discharge: 35 minutes Core Measure Documentation - Palliative Care Palliative Care/ Comfort Measures: Not Applicable - Core Measures Any of the following diagnoses?: none - VTE Discharge Requirements Deep Vein Thrombosis/Pulmonary Embolism Present on Admission: No Has pt received <5 days of overlap therapy or INR<2.0: No Anticoagulant overlap therapy prescribed at discharge: No Contraindication No Overlap Therapy order at DC: Not Indicated Exam - Physical Exam Narrative exam: Gen: WDWN, NAD, Awake, Alert, Orientated HEENT: NCAT, EOMI, PERRL, OP Clear Neck: supple, no adenopathy, no thyromegaly, no JVD CVS/Heart: RRR, normal S1S2, pulses present bilaterally Chest/Lungs: CTA B, Symmetrical chest expansion, good air entry bilaterally GI/Abdomen: soft, NTND, good bowel sounds, no guarding or rebound /Bladder: no suprapubic tenderness, no CVA or paraspinal tenderness Extermity/Skin: no c/c/e, no obvious rash MSK: FROM x 4 Neuro: CN 2-12 grossly intact, no new focal deficits Psych: calm - Constitutional Vitals: Temp Pulse Resp BP Pulse Ox 97.9 F 59 L 18 136/67 95 01/28/19 12:21 01/28/19 12:21 01/28/19 12:21 01/28/19 12:21 01/28/19 12:21 Plan Activity: advance as tolerated Diet: low salt Special Instructions: record daily BP diary Additional Instructions: 1) Call [facility] [phone] for primary care provider. 2) LDL is 143 (goal is less than 100). 3) TSH 5.30, mildly high (normal is 0.2 to 4.42). Call Dr. Rosey Rojo to recheck Thyroid level and function. [address] [facility] [address], [place] [address]. Follow up with: JOANN LUI MD [Staff Physician] - 7 [facility] ROSEY ROJO MD [Staff Physician] - 7 Days Prescriptions: AtorvaSTATin [Lipitor] 40 mg PO QHS #30 tablet Metoprolol [Lopressor TAB] 25 mg PO BID #60 tablet Pantoprazole [Protonix TAB] 40 mg PO QDAY #30 tablet
== END 2019-01-28 16:40 | disposition home or self-care (01) ==
LOC: ED 18:53 → 4A 21:53
PROVIDERS: ADMIT Internal Medicine; ATTEND Internal Medicine
DX: R07.89 Other chest pain (principal); I16.0 Hypertensive urgency; E78.5 Hyperlipidemia, unspecified; R94.39 Abnormal result of other cardiovascular function study; R03.0 Elevated blood-pressure reading, without diagnosis of hypertension; R42 Dizziness and giddiness; R06.00 Dyspnea, unspecified; Z79.899 Other long term (current) drug therapy
CPT/HCPCS: 36415; 71045; 78452; 80048; 80061; 81001; 82550; 82553; 82962; 83735; 84443; 84484; 85007; 85025; 85379; 85610; 87086; 93005; 93010; 93017; 93458; 93567; 96361; 96365; 96366; 96372; 96375; 99284; A9270; A9502; C1769; C1894; G0378; J0696; J1644; J1650; J1885; J2250; J2785; J3010; J7040; Q9967